=== PATIENT | female | born 1950 | race Caucasian/White ===

== ENCOUNTER → 2020-10-02 | Outpatient (CLI) | payer OTHER ==
[~2020-10-02] MED LIST: ACTOS30 MG PO; CALCIUM600 MG PO; CATAPRES 0.1MG0.1 MG PO; COREG6.25 MG PO; ECOTRIN81 MG PO; ELIQUIS 2.5 MG2.5 MG PO; FISH OIL 1,0001 EACH PO; GLUCOPHAGE1000 MG PO; GLUCOTROL 10 MG10 MG PO; LIPITOR TAB 2020 MG PO; LISINOPRIL20 MG PO; MICROZIDE12.5 MG PO; NAPROSYN500 MG PO; NIACIN ER500 MG PO; NORCO 5-325 TA1 EACH PO; OMEPRAZOLE20 MG PO; VITAMIN D 11000 UNIT PO; VITAMIN D2000 UNI1 PO; VITAMIN D2000 UNIT PO
== END ==
LOC: MAMO 10:48
DX: R92.8 Other abnormal and inconclusive findings on diagnostic imaging of breast (principal)
CPT/HCPCS: 77065

== ENCOUNTER → 2021-01-03 | Outpatient (CLI) | payer OTHER ==
[2021-01-03 08:59] LABS: HEMOGLOBIN 11.8 gm/dl (12.3-15.3); RED BLOOD COUNT 4.91 M/UL (4.00-5.10); WHITE BLOOD COUNT 8.4 K/UL (4.5-11.0)
[2021-01-03 09:19] LABS: BUN/CREATININE RATIO 24 (0-10)
[2021-01-04 08:14] LABS: CREATININE, URINE 88.6 mg/dL (Not Estab.)
== END ==
LOC: LAB 08:13
PROVIDERS: Physician Assistant Medical
DX: E11.9 Type 2 diabetes mellitus without complications (principal); E78.2 Mixed hyperlipidemia; G45.9 Transient cerebral ischemic attack, unspecified; H61.22 Impacted cerumen, left ear; I10 Essential (primary) hypertension
CPT/HCPCS: 36415; 80053; 80061; 82043; 82570; 85025

== ENCOUNTER → 2021-04-21 | Outpatient (CLI) | payer OTHER ==
[2021-04-21 10:25] LABS: HEMOGLOBIN 11.4 gm/dl (12.3-15.3); RED BLOOD COUNT 4.8 M/UL (4.00-5.10); WHITE BLOOD COUNT 6.5 K/UL (4.5-11.0)
== END ==
LOC: LAB 09:10
PROVIDERS: Physician Assistant Medical
DX: Z01.812 Encounter for preprocedural laboratory examination (principal); D64.9 Anemia, unspecified; E11.9 Type 2 diabetes mellitus without complications; E78.2 Mixed hyperlipidemia; G45.9 Transient cerebral ischemic attack, unspecified; H61.22 Impacted cerumen, left ear
CPT/HCPCS: 36415; 82565; 82728; 83540; 83550; 84520; 85025; 85045; 93005

== ENCOUNTER → 2021-04-28 | Outpatient (CLI) | payer OTHER | LOC: CT 07:31 | DX: E11.9 Type 2 diabetes mellitus without complications (principal); K76.0 Fatty (change of) liver, not elsewhere classified; Z80.0 Family history of malignant neoplasm of digestive organs | CPT/HCPCS: Q9967 ==

== ENCOUNTER → 2021-10-29 | Outpatient (CLI) | payer OTHER ==
[2021-10-29 08:42] LABS: HEMOGLOBIN 13.9 gm/dl (12.3-15.3); RED BLOOD COUNT 4.78 M/UL (4.00-5.10); WHITE BLOOD COUNT 6.2 K/UL (4.5-11.0)
[2021-10-29 09:14] LABS: BUN/CREATININE RATIO 23 (0-10)
== END ==
LOC: LAB 08:07
PROVIDERS: Nurse Practitioner Family
DX: E53.8 Deficiency of other specified B group vitamins (principal); I10 Essential (primary) hypertension; M81.0 Age-related osteoporosis without current pathological fracture
CPT/HCPCS: 36415; 80053; 80061; 82607; 83540; 83550; 84443; 85025

== ENCOUNTER → 2021-11-20 | Outpatient (CLI) | payer OTHER | LOC: MAMO 12:26 | DX: Z12.31 Encounter for screening mammogram for malignant neoplasm of breast (principal); M81.0 Age-related osteoporosis without current pathological fracture; M85.852 Other specified disorders of bone density and structure, left thigh | CPT/HCPCS: 77063; 77067; 77080 ==

== ENCOUNTER → 2022-01-01 | Outpatient (CLI) | payer OTHER | LOC: RAD 09:11 | DX: Z71.3 Dietary counseling and surveillance (principal); M17.11 Unilateral primary osteoarthritis, right knee | CPT/HCPCS: 73562 ==

== ENCOUNTER → 2022-01-30 | Outpatient (CLI) | payer OTHER ==
[2022-01-30 09:15] LABS: HEMOGLOBIN 14.1 gm/dl (12.3-15.3); RED BLOOD COUNT 4.75 M/UL (4.00-5.10); WHITE BLOOD COUNT 6.4 K/UL (4.5-11.0)
[2022-01-30 09:56] LABS: BUN/CREATININE RATIO 17 (0-10)
[2022-01-31 09:18] LABS: CREATININE, URINE 71.8 mg/dL (Not Estab.)
== END ==
LOC: LAB 08:35
PROVIDERS: Nurse Practitioner Family
DX: E11.65 Type 2 diabetes mellitus with hyperglycemia (principal); I10 Essential (primary) hypertension
CPT/HCPCS: 36415; 80053; 80061; 82043; 82570; 83036; 85025

== ENCOUNTER → 2022-04-29 | Outpatient (CLI) | payer OTHER ==
[2022-04-29 12:00] LABS: HEMOGLOBIN 13.3 gm/dl (12.3-15.3); RED BLOOD COUNT 4.53 M/UL (4.00-5.10); WHITE BLOOD COUNT 5.7 K/UL (4.5-11.0)
[2022-04-29 13:18] LABS: BUN/CREATININE RATIO 22 (0-10)
== END ==
LOC: LAB 10:48
PROVIDERS: Family Medicine
DX: D50.9 Iron deficiency anemia, unspecified (principal); E78.2 Mixed hyperlipidemia; E53.8 Deficiency of other specified B group vitamins; E11.65 Type 2 diabetes mellitus with hyperglycemia
CPT/HCPCS: 36415; 80053; 80061; 82607; 82728; 83036; 83540; 83550; 85025